=== PATIENT | female | born 1990 | race Caucasian/White ===

== ENCOUNTER 2016-12-16 18:47 | Inpatient (IN) | payer OTHER, BC ==
[2016-12-16] MEDS ORDERED: NS 1,000 ML IV ONE ×2 (19:01→20:44)
[2016-12-16] MEDS ORDERED: ONDANSETRON 4 MG/2 ML VIAL IVP ONE (19:09)
[2016-12-16] MEDS ORDERED: HYDROmorphONE/DILAUDID 1 MG/ML SYR IVP ONE ×2 (19:09→20:42)
[2016-12-16 19:12] LABS: % IMMATURE GRANULYOCYTES 0.3 % (0.0-1.1); ABSOLUTE IMMATURE GRANULOCYTES 0.04 10^3/uL (0.00-0.10); ADD DIFF? NO; ADD MORPH? NO; ADD SCAN? NO; ATYPICAL LYMPHOCYTE FLAG 0 (0-99); FRAGMENT RBC FLAG 0 (0-99); HEMATOCRIT 38.1 % (38.0-47.0); HEMOGLOBIN 12.4 g/dL (12.6-16.3); LEFT SHIFT FLG 0 (0-99); LIPEMIA HEMOLYSIS FLAG 80 (0-99); MEAN CELL HEMOGLOBIN 24.4 pg (27.9-34.1); MEAN CELL HEMOGLOBIN CONCENTR. 32.5 g/dL (32.4-36.7); MEAN CELL VOLUME 74.9 fL (81.5-99.8); MEAN PLATELET VOLUME 10.9 fL (8.7-11.7); PLATELET CLUMPS FLAG 0 (0-99); PLATELET COUNT 331 10^3/uL (150-400); RED BLOOD CELL COUNT 5.09 10^6/uL (4.18-5.33); RED CELL DISTRIBUTION WIDTH 14.6 % (11.5-15.2)
--- NOTE | 2016-12-16 19:13 | EDPHY ---
H & P Stated Complaint: Has had previous pancreatitis. Feels she has is having an episode today. - Personal History LMP (Females 10-55): 1-7 Days Ago Current Tetanus Diphtheria and Acellular Pertussis (TDAP): Yes - Medical/Surgical History Hx Asthma: No Hx Chronic Respiratory Disease: No Hx Diabetes: No Hx Cardiac Disease: No Hx Renal Disease: No Hx Cirrhosis: No Hx Alcoholism: No Hx HIV/AIDS: No Hx Splenectomy or Spleen Trauma: No Other PMH: Pancreatitis. Back surgery. - Social History Smoking Status: Never smoked Time Seen by Provider: 12/16/16 18:56 HPI/ROS: CHIEF COMPLAINT: " I think I have pancreatitis again" HISTORY OF PRESENT ILLNESS: 26-year-old female with medical history significant for multiple gastroenterological issues including non alcohol induced pancreatitis, remote history of cholecystectomy, ERCP, all performed in [facility], complaining of acute onset epigastric pain since this morning with associated nausea. Passing flatus as normal. Bowel movements normal. No vomiting. Feels similar to prior episodes of acute pancreatitis. No radiation pain. No fever or chills. No trauma. No urinary abnormality. Last oral intake was at noon today consisting of quinoa which exacerbated her symptoms REVIEW OF SYSTEMS: A ten point review of systems was performed and is negative with the exception of the items mentioned in the HPI PAST MEDICAL & SURGICAL HISTORY: Cholecystectomy. ERCP. Pancreatitis. SOCIAL HISTORY: intermittent, social alcohol use. 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 PHYSICAL EXAM (Prior to examination, patient consented to physical exam, hands were washed and my usual and customary physical exam procedures followed) 1) GENERAL: Well-developed, well-nourished, alert and oriented. Appears uncomfortable, guarding epigastrium 2) HEAD: Normocephalic, atraumatic 3) HEENT: Pupils equal, round, reactive to light bilaterally. Sclera anicteric. Nasopharynx, oropharynx, clear, no lesions. dry mucous membrane 4) NECK: Full range of motion, no meningeal signs. 5) LUNGS: Clear auscultation bilaterally, no wheezes, no rhonchi, no retractions. 6) HEART: Regular rate and rhythm, no murmur, no heave, no gallop. 7) ABDOMEN: guarding epigastrium, tender to palpation epigastrium , negative McBurney's, negative Felix's, negative Rovsing's, negative peritoneal sign, 8) MUSCULOSKELETAL: Moving all extremities, no focal areas of tenderness, no obvious trauma. No peripheral edema or discoloration. 9) BACK: [No CVA tenderness, no midline vertebral tenderness, no fluctuance, no step-off, no obvious trauma, no visual or palpable abnormality. 10) SKIN: [No rash, no petechiae. DIFFERENTIAL DIAGNOSIS: In no particular order, including but not limited to biliary colic, cholecystitis, peptic ulcer disease, Bowel obstruction, pancreatitis, and gastroenteritis. This is a partial list of diagnoses considered. These considerations are based on history, physical exam, past history and reassessment. (Dusty Enrique) Constitutional: Initial Vital Signs Temperature (C) 36.3 C 12/16/16 18:50 Heart Rate 58 L 12/16/16 18:50 Respiratory Rate 20 12/16/16 18:50 Blood Pressure 105/57 L 12/16/16 18:50 O2 Sat (%) 100 12/16/16 18:50 O2 Delivery Mode Room Air Allergies/Adverse Reactions: No Known Allergies Allergy (Unverified 12/16/16 18:54) Home Medications: Medication Instructions Recorded Ethinyl Estradiol/Drospirenone 1 each PO HS 12/16/16 [Katya 28 Tablet] Lipase/Protease/Amylase [ZENPEP DR 1 cap PO TID PRN 12/16/16 5,000 UNITS CAPSULE] Lipase/Protease/Amylase [ZENPEP DR 2 cap PO DAILY 12/16/16 5,000 UNITS CAPSULE] Multivitamins [Multivitamin (*)] 1 each PO DAILY 12/16/16 Pantoprazole Sodium [Protonix 40mg 40 mg PO DAILY 12/16/16 (*)] Medical Decision Making ED Course/Re-evaluation: Patient was re-evaluated with serial examinations. Discussed case Dr. Neville Uriostegui in the ER. Patient has evidence of acute pancreatitis, lipase of 1957. CT imaging performed showing no pancreatic head mass or abscess. Plan will be admission for further evaluation of her acute pancreatitis. Phone consultation with hospitalist Dr. Arun Akbar at 8:20 p.m. who will admit patient. (Klaus,D Nabila) I did not see this patient while she was in the emergency department. However her care was discussed with the PA while the patient was in the department. I agree with treatment plan and management (Neville Uriostegui) - Data Points Laboratory Results: Laboratory Results 12/16/16 19:05 12/16/16 19:05 12/16/16 12/16/16 12/16/16 19:05 19:05 19:05 WBC 13.89 10^3/uL H 10^3/uL (3.80-9.50) RBC 5.09 10^6/uL 10^6/uL (4.18-5.33) Hgb 12.4 g/dL L g/dL (12.6-16.3) Hct 38.1 % % (38.0-47.0) MCV 74.9 fL L fL (81.5-99.8) MCH 24.4 pg L pg (27.9-34.1) MCHC 32.5 g/dL g/dL (32.4-36.7) RDW 14.6 % % (11.5-15.2) Plt Count 331 10^3/uL 10^3/uL (150-400) MPV 10.9 fL fL (8.7-11.7) Neut % (Auto) 73.8 % % (39.3-74.2) Lymph % (Auto) 16.6 % % (15.0-45.0) [place] % (Auto) 7.0 % % (4.5-13.0) Eos % (Auto) 1.9 % % (0.6-7.6) Baso % (Auto) 0.4 % % (0.3-1.7) Nucleat RBC Rel Count 0.0 % % (0.0-0.2) Absolute Neuts (auto) 10.26 10^3/uL H 10^3/uL (1.70-6.50) Absolute Lymphs (auto) 2.31 10^3/uL 10^3/uL (1.00-3.00) Absolute Monos (auto) 0.97 10^3/uL H 10^3/uL (0.30-0.80) Absolute Eos (auto) 0.26 10^3/uL 10^3/uL (0.03-0.40) Absolute Basos (auto) 0.05 10^3/uL 10^3/uL (0.02-0.10) Absolute Nucleated RBC 0.00 10^3/uL 10^3/uL (0-0.01) Immature Gran % 0.3 % % (0.0-1.1) Immature Gran # 0.04 10^3/uL 10^3/uL (0.00-0.10) Sodium 138 mEq/L mEq/L (134-144) Potassium 3.8 mEq/L mEq/L (3.5-5.2) Chloride 105 mEq/L mEq/L (97-110) Carbon Dioxide 22 mEq/l mEq/l (22-31) Anion Gap 11 mEq/L mEq/L (8-16) BUN 16 mg/dL mg/dL (7-23) Creatinine 1.0 mg/dL mg/dL (0.6-1.0) Estimated GFR > 60 Glucose 91 mg/dL mg/dL (70-100) Calcium 9.7 mg/dL mg/dL (8.5-10.4) Total Bilirubin 0.5 mg/dL mg/dL (0.1-1.4) Conjugated Bilirubin 0.5 mg/dL mg/dL (0.0-0.5) Unconjugated Bilirubin 0.0 mg/dL mg/dL (0.0-1.1) AST 24 IU/L IU/L (14-46) ALT 31 IU/L IU/L (9-52) Alkaline Phosphatase 58 IU/L IU/L (38-126) Total Protein 7.0 g/dL g/dL (6.3-8.2) Albumin 4.3 g/dL g/dL (3.5-5.0) Lipase 1957.0 IU/L H IU/L (23-300) Beta HCG, Qual NEGATIVE Medications Given: Discontinued Medications Hydromorphone HCl (Dilaudid) 1 mg IVP EDNOW ONE Stop: 12/16/16 19:10 Last Admin: 12/16/16 19:22 Dose: 1 mg Sodium Chloride (Ns) 1,000 mls @ 0 mls/hr IV ONCE ONE PRN Reason: Wide Open Stop: 12/16/16 19:02 Last Admin: 12/16/16 19:22 Dose: 1,000 mls Ondansetron HCl (Zofran) 4 mg IVP EDNOW ONE Stop: 12/16/16 19:10 Last Admin: 12/16/16 19:22 Dose: 4 mg Departure - Departure Disposition: [facility] In[facility] Acute Clinical Impression: Acute pancreatitis Qualifiers: Pancreatitis type: unspecified pancreatitis type Acute pancreatitis complication: no infection or necrosis Qualified Code(s): K85.90 - Acute pancreatitis without necrosis or infection, unspecified Condition: Fair
[2016-12-16] MEDS ORDERED: ONDANSETRON 4 MG/2 ML VIAL ONE (19:17)
[2016-12-16 19:25] LABS: ALANINE AMINOTRANSFERASE 31 IU/L (9-52); ALBUMIN 4.3 g/dL (3.5-5.0); ALKALINE PHOSPHATASE 58 IU/L (38-126); ANION GAP 11 mEq/L (8-16); ASPARTATE AMINOTRANSFERASE 24 IU/L (14-46); BILIRUBIN,TOTAL 0.5 mg/dL (0.1-1.4); BILIRUBIN-CONJUGATED 0.5 mg/dL (0.0-0.5); CALCIUM 9.7 mg/dL (8.5-10.4); CARBON DIOXIDE 22 mEq/l (22-31); CHLORIDE 105 mEq/L (97-110); GLOMERULAR FILTRATION RATE > 60; GLUCOSE 91 mg/dL (70-100); POTASSIUM 3.8 mEq/L (3.5-5.2); SODIUM 138 mEq/L (134-144)
[2016-12-16] MEDS ORDERED: IOPAMIDOL (ISOVUE-300) 100 ML BTL IV ONE (19:43)
[2016-12-16] MEDS ORDERED: NALOXONE HCL 0.4 MG/ML INJ IVP PRN (21:39)
[2016-12-16] MEDS ORDERED: ACETAMINOPHEN 325 MG TAB PO PRN (21:43)
[2016-12-16] MEDS ORDERED: ONDANSETRON DISINTEGRATING 4 MG TAB PO PRN (21:43)
[2016-12-16] MEDS ORDERED: METOCLOPRAMIDE 10 MG/2 ML VIAL IVP PRN (21:43)
[2016-12-16] MEDS: ONDANSETRON 4 MG/2 ML VIAL IVP PRN (21:58)
[2016-12-16] MEDS: HYDROmorphONE/DILAUDID 6 MG/30 ML PCA IV PRN (22:08)
[2016-12-16] MEDS: NS 1,000 ML IV SCH (22:14)
[2016-12-17 02:37] LABS: COLOR PALE YELLOW; LEUKOCYTE ESTERASE,URINE NEGATIVE (NEGATIVE); NITRITE,URINE NEGATIVE (NEGATIVE)
[2016-12-17] MEDS: NS 1,000 ML IV SCH (04:40)
[2016-12-17 05:19] LABS: ALANINE AMINOTRANSFERASE 26 IU/L (9-52); ALKALINE PHOSPHATASE 41 IU/L (38-126); ANION GAP 6 mEq/L (8-16); ASPARTATE AMINOTRANSFERASE 17 IU/L (14-46); BILIRUBIN,TOTAL 0.4 mg/dL (0.1-1.4); CALCIUM 8.1 mg/dL (8.5-10.4); CARBON DIOXIDE 20 mEq/l (22-31); CHLORIDE 111 mEq/L (97-110); CREATININE 0.9 mg/dL (0.6-1.0); GLOMERULAR FILTRATION RATE > 60; GLUCOSE 144 mg/dL (70-100); POTASSIUM 4.3 mEq/L (3.5-5.2); SODIUM 137 mEq/L (134-144); TOTAL PROTEIN 5.4 g/dL (6.3-8.2)
[2016-12-17] MEDS ORDERED: NS 1,000 ML IV ONE (08:15)
[2016-12-17] MEDS: PANTOPRAZOLE SODIUM 40 MG in NS 100 ML IV SCH (09:53)
[2016-12-17] MEDS: ENOXAPARIN 40 MG/0.4 ML SYR SC SCH (09:53)
[2016-12-17] MEDS: ONDANSETRON 4 MG/2 ML VIAL IVP PRN (11:28)
[2016-12-17] MEDS: D5W 1/2 NS 1,000 ML IV SCH (11:30)
--- NOTE | 2016-12-17 11:56 | HOSPPROG ---
Hospitalist Progress Note Assessment/Plan: Acute pancreatitis - has h/o pancreatic stones causing prior episodes of pancreatitis. S/P cholecystectomy 01/2012. Last ERCP was 11/2013, removed a stone at that time. CT imaging here shows enlarged pancreatic duct. -cont NPO, IVF's, supportive care -if not improving, will pursue MRCP and possibly GI consult Chronic back pain - h/o microdiscectomy, followed by PT DVT PPLX - Lovenox Full code Subjective: Pt doing ok. has some nausea, no vomiting. Pain controlled on HIDES INSPECTOR. No fevers. Objective: Vital Signs Temp Pulse Resp BP Pulse Ox 36.7 C 60 16 105/64 97 12/17/16 09:57 12/17/16 09:57 12/17/16 09:57 12/17/16 09:57 12/17/16 09:57 Laboratory Results 12/17/16 04:37 12/16/16 12/17/16 12/18/16 05:59 05:59 05:59 Intake Total 2650 Output Total 700 Balance 1950 - Physical Exam Constitutional: no apparent distress Eyes: PERRL Ears, Nose, Mouth, Throat: moist mucous membranes Cardiovascular: regular rate and rhythym, no murmur, rub, or gallop Respiratory: no respiratory distress, clear to auscultation Gastrointestinal: normoactive bowel sounds, other (soft, nd, +epigastric ttp, no r/r/g) Skin: warm Musculoskeletal: full muscle strength Neurologic: AAOx3 Psychiatric: interacting appropriately ICD10 Worksheet Patient Problems: Problems Problem Status Onset Acute pancreatitis Acute
[2016-12-17] MEDS: PROMETHAZINE HCL 25 MG TAB PO PRN ×2 (12:37→18:42)
[2016-12-17] MEDS ORDERED: PROTOCOL CALCIUM 1 DOSE IV PRN (17:32)
[2016-12-17] MEDS ORDERED: DROSPIRENONE PO SCH (21:00)
[2016-12-17] MEDS ORDERED: ETHINYL ESTRADIOL PO SCH (21:00)
[2016-12-17] MEDS: DROSPIRENONE PO SCH (21:07)
[2016-12-17] MEDS: ETHINYL ESTRADIOL PO SCH (21:07)
[2016-12-18] MEDS: D5W 1/2 NS 1,000 ML IV SCH ×2 (00:59→08:28)
[2016-12-18 04:56] LABS: IONIZED CALCIUM 1.13 MMOL/L (1.12-1.30)
[2016-12-18 05:06] LABS: % IMMATURE GRANULYOCYTES 0.4 % (0.0-1.1); ABSOLUTE IMMATURE GRANULOCYTES 0.03 10^3/uL (0.00-0.10); ADD DIFF? NO; ADD MORPH? NO; ADD SCAN? NO; ATYPICAL LYMPHOCYTE FLAG 10 (0-99); FRAGMENT RBC FLAG 0 (0-99); HEMATOCRIT 30.3 % (38.0-47.0); HEMOGLOBIN 9.7 g/dL (12.6-16.3); LEFT SHIFT FLG 0 (0-99); LIPEMIA HEMOLYSIS FLAG 80 (0-99); MEAN CELL HEMOGLOBIN 24.8 pg (27.9-34.1); MEAN CELL VOLUME 77.5 fL (81.5-99.8); MEAN PLATELET VOLUME 10.9 fL (8.7-11.7); PLATELET CLUMPS FLAG 0 (0-99); PLATELET COUNT 211 10^3/uL (150-400); RED BLOOD CELL COUNT 3.91 10^6/uL (4.18-5.33); RED CELL DISTRIBUTION WIDTH 14.8 % (11.5-15.2)
[2016-12-18 05:20] LABS: ANION GAP 6 mEq/L (8-16); CALCIUM 8.3 mg/dL (8.5-10.4); CARBON DIOXIDE 20 mEq/l (22-31); CHLORIDE 110 mEq/L (97-110); CREATININE 0.9 mg/dL (0.6-1.0); GLOMERULAR FILTRATION RATE > 60; GLUCOSE 120 mg/dL (70-100); POTASSIUM 3.7 mEq/L (3.5-5.2); SODIUM 136 mEq/L (134-144)
[2016-12-18] MEDS: PANTOPRAZOLE SODIUM 40 MG in NS 100 ML IV SCH (08:26)
[2016-12-18] MEDS: ENOXAPARIN 40 MG/0.4 ML SYR SC SCH (09:38)
--- NOTE | 2016-12-18 09:59 | HOSPPROG ---
Hospitalist Progress Note Assessment/Plan: Acute pancreatitis - has h/o pancreatic stones causing prior episodes of pancreatitis. Reviewed prior records. S/P cholecystectomy 01/2012. Last ERCP was 11/2013, removed a stone at that time. CT imaging here shows minimally enlarged pancreatic duct. Since she is improving, will defer MRCP today. -try ice chips, cont IVF's, supportive care -Low threshold for MRCP and GI consult if condition worsens Chronic back pain - h/o microdiscectomy, followed by PT DVT PPLX - Lovenox Full code Dispo - cont inpt Subjective: PT feels better. Pain 3/10 at rest. No more nausea, no vomiting. No fevers/chills. Wants to try some ice chips. Objective: Vital Signs Temp Pulse Resp BP Pulse Ox 36.7 C 52 L 14 101/59 L 96 12/18/16 08:42 12/18/16 08:42 12/18/16 08:42 12/18/16 08:42 12/18/16 08:42 Laboratory Results 12/18/16 04:49 12/18/16 04:49 12/17/16 12/18/16 12/19/16 05:59 05:59 05:59 Intake Total 2650 Output Total 700 1350 800 Balance 1950 -1350 -800 - Physical Exam Constitutional: no apparent distress Eyes: PERRL Ears, Nose, Mouth, Throat: moist mucous membranes Cardiovascular: regular rate and rhythym Respiratory: no respiratory distress Gastrointestinal: normoactive bowel sounds, other (soft, nd, mild epigastric TTP , no r/r/g) Skin: warm Musculoskeletal: full muscle strength Neurologic: AAOx3 Psychiatric: interacting appropriately ICD10 Worksheet Patient Problems: Problems Problem Status Onset Acute pancreatitis Acute
[2016-12-18] MEDS: D5W 1/2 NS W/ 20 KCl/L 1,000 ML IV SCH ×2 (10:30→17:44)
[2016-12-18] MEDS: HYDROmorphONE/DILAUDID 6 MG/30 ML PCA IV PRN (11:20)
[2016-12-18] MEDS: DROSPIRENONE PO SCH (20:29)
[2016-12-18] MEDS: ETHINYL ESTRADIOL PO SCH (20:29)
[2016-12-19] MEDS: D5W 1/2 NS W/ 20 KCl/L 1,000 ML IV SCH (02:47)
[2016-12-19 04:53] LABS: IONIZED CALCIUM 1.17 MMOL/L (1.12-1.30)
[2016-12-19 05:00] LABS: HEMATOCRIT 30.6 % (38.0-47.0); HEMOGLOBIN 9.9 g/dL (12.6-16.3); MEAN CELL HEMOGLOBIN 24.8 pg (27.9-34.1); MEAN CELL HEMOGLOBIN CONCENTR. 32.4 g/dL (32.4-36.7); MEAN CELL VOLUME 76.5 fL (81.5-99.8); RED CELL DISTRIBUTION WIDTH 14.7 % (11.5-15.2)
[2016-12-19 05:21] LABS: ANION GAP 7 mEq/L (8-16); CALCIUM 8.5 mg/dL (8.5-10.4); CARBON DIOXIDE 22 mEq/l (22-31); CHLORIDE 109 mEq/L (97-110); GLOMERULAR FILTRATION RATE > 60; GLUCOSE 104 mg/dL (70-100); POTASSIUM 3.9 mEq/L (3.5-5.2); SODIUM 138 mEq/L (134-144)
[2016-12-19] MEDS: PANTOPRAZOLE SODIUM 40 MG in NS 100 ML IV SCH (08:45)
[2016-12-19] MEDS: ENOXAPARIN 40 MG/0.4 ML SYR SC SCH (09:16)
[2016-12-19] MEDS ORDERED: oxyCODONE IR 5 MG TAB PO PRN (15:31)
[2016-12-19 16:50] VITALS: BP 115/62; PULSE 54; RESP 16; TEMP 98.3; O2SAT 98
--- NOTE | 2016-12-19 19:42 | GDS ---
[f rep st] DISCHARGE SUMMARY DISCHARGE DIAGNOSES: 1. Acute on chronic pancreatitis. 2. Chronic back pain. CONSULTANTS: None. IMAGING STUDIES/PROCEDURES: Abdomen CT December 16, 2016, showed inflammation around the pancreatic he ad on top of underlying chronic pancreatitis with calcifications of the pancreatic head and body as well as mild pancreatic ductal dilatation, previous cholecystectomy. HISTORY: The patient is a 26-year-old female with a history of chronic pancreatitis, who has previo usly required ERCP for removal of pancreatic stones and has also undergone cholecystectomy, presents to the emergency department with abdominal pain and nausea. CT imaging was consistent with acute p ancreatitis. She was admitted to the hospital for further management. HOSPITAL COURSE: The patient was admitted to the med-surg unit. She was initially made n.p.o. for bowel rest and given IV fluids. She had an acute leukocytosis on admission, which resolved at the t jada of discharge. Her lipase was nearly 2000 on arrival. Repeat lipase was 84. She had normal LFT s. Her pancreatic duct was just minimally dilated. Fortunately, with conservative care, the patient quickly improved. Therefore, further imaging was d eferred. She was able to tolerate a full diet on the day of discharge, and it is recommended she es tablish care with a body technician locally here in [place], as her prior GI care had been in [place]. DISPOSITION: Patient is discharged home in stable condition. FOLLOWUP: Dr. Hesham Flor, GI of [facility], for outpatient consultation. DISCHARGE MEDICATIONS: Please see [employer] for complete outpatient medication list. New medications on discharge include: Oxycodone 5-10 mg p.o. q.4 hours p.r.n. #20 no refills, Zofra n 4 mg p.o. q.4 hours p.r.n. #20 no refills. She will continue all her other outpatient medications as prescribed, including p.r.n. Creon, Katya or al contraception, Protonix, and multivitamin. /[id number]/MODL
== END 2016-12-19 17:37 | disposition home or self-care (01) | DRG 440 ==
LOC: F3E 21:13
PROVIDERS: ADMIT Internal Medicine; ATTEND Internal Medicine
DX: K85.90 Acute pancreatitis without necrosis or infection, unspecified (principal); K86.1 Other chronic pancreatitis; M54.9 Dorsalgia, unspecified
CPT/HCPCS: 96374; J1170; J1650; J2405; Q9967

== ENCOUNTER 2017-02-17 02:30 | Inpatient (IN) | payer BC, OTHER ==
[2017-02-17] MEDS ORDERED: ONDANSETRON 4 MG/2 ML VIAL ONE ×2 (02:55→05:58)
[2017-02-17] MEDS ORDERED: FAMOTIDINE 20 MG/NACL 50 ML IV ONE (02:57)
[2017-02-17] MEDS ORDERED: NS 1,000 ML IV ONE (02:57)
[2017-02-17 03:09] LABS: % IMMATURE GRANULYOCYTES 0.2 % (0.0-1.1); ABSOLUTE IMMATURE GRANULOCYTES 0.02 10^3/uL (0.00-0.10); ADD DIFF? NO; ADD MORPH? NO; ADD SCAN? NO; ATYPICAL LYMPHOCYTE FLAG 0 (0-99); FRAGMENT RBC FLAG 0 (0-99); HEMATOCRIT 37.8 % (38.0-47.0); HEMOGLOBIN 12.1 g/dL (12.6-16.3); LEFT SHIFT FLG 0 (0-99); LIPEMIA HEMOLYSIS FLAG 80 (0-99); MEAN CELL HEMOGLOBIN 24.7 pg (27.9-34.1); MEAN CELL VOLUME 77.1 fL (81.5-99.8); MEAN PLATELET VOLUME 11.1 fL (8.7-11.7); PLATELET CLUMPS FLAG 10 (0-99); PLATELET COUNT 310 10^3/uL (150-400)
--- NOTE | 2017-02-17 03:12 | EDPHY ---
H & P Stated Complaint: chronic pancreatitis- exacerbation, post recent ERCP Time Seen by Provider: 02/17/17 02:55 HPI/ROS: HPI The patient presents with upper abdominal pain which has been present since she had an ERCP was performed on February 14 at [facility]. She had a pancreatic stent placed for chronic pancreatitis. She initially had pain but was able to tolerate clear liquids and some bland foods. However, for the last 2 days her pain is getting progressively worse as and she has not been able to tolerate anything by mouth because it increased pain. She has not had any vomiting. She has been taking oxycodone for the pain, however her last dose did not help her. She has not had any fevers or chills.. REVIEW OF SYSTEMS Constitutional: No fever, no chills. Eyes: No discharge. ENT: No sore throat. Cardiovascular: No chest pain, no palpitations. Respiratory: No cough, no shortness of breath. Gastrointestinal: See HPI Genitourinary: No hematuria. Musculoskeletal: No back pain. Skin: No rashes. Neurological: No headache. PMHx: Chronic pancreatitis, status post cholecystectomy Soc Hx: Moved to [place] from [place] PHYSICAL General Appearance: Alert, no distress Eyes: Pupils equal and round no pallor or injection ENT, Mouth: Mucous membranes moist Respiratory: There are no retractions, lungs are clear to auscultation Cardiovascular: Regular rate and rhythm Gastrointestinal: Abdomen is soft with tenderness in the epigastrium and left upper quadrant which is moderate without rebound or guarding Neurological: A&O, moves all extremities Skin: Warm and dry, no rashes Musculoskeletal: Neck is supple non tender Extremities: symmetrical, full range of motion Psychiatric: Patient is oriented X 3, there is no agitation Source: Patient Exam Limitations: No limitations - Personal History LMP (Females 10-55): 15-21 Days Ago - Medical/Surgical History Hx Asthma: No Hx Chronic Respiratory Disease: No Hx Diabetes: No Hx Cardiac Disease: No Hx Renal Disease: No Hx Cirrhosis: No Hx Alcoholism: No Hx HIV/AIDS: No Hx Splenectomy or Spleen Trauma: No Other PMH: PMHx: Pancreatitis. PSHx: Back surgery. - Social History Smoking Status: Never smoked Constitutional: Initial Vital Signs Temperature (C) 36.5 C 02/17/17 02:32 Heart Rate 52 L 02/17/17 02:32 Respiratory Rate 14 02/17/17 02:32 Blood Pressure 112/75 02/17/17 02:32 O2 Sat (%) 100 02/17/17 02:32 O2 Delivery Mode Room Air Allergies/Adverse Reactions: No Known Allergies Allergy (Unverified 12/16/16 18:54) Home Medications: Medication Instructions Recorded Ethinyl Estradiol/Drospirenone 1 each PO HS 12/16/16 [Katya 28 Tablet] Lipase/Protease/Amylase [ZENPEP DR 1 cap PO TID PRN 12/16/16 5,000 UNITS CAPSULE] Lipase/Protease/Amylase [ZENPEP DR 2 cap PO DAILY 12/16/16 5,000 UNITS CAPSULE] Multivitamins [Multivitamin (*)] 1 each PO DAILY 12/16/16 Pantoprazole Sodium [Protonix 40mg 40 mg PO DAILY 12/16/16 (*)] Ondansetron Odt [Zofran Odt 4 mg 4 mg PO Q4HRS PRN #20 tab 12/19/16 (*)] oxyCODONE IR [Oxycodone Ir (*)] 5 - 10 mg PO Q4HRS PRN #20 tab 12/19/16 Medical Decision Making - Diagnostics Imaging Results: CT scan abdomen pelvis with IV contrast demonstrates inflammation of the pancreatic head, pancreatic stent in place, discussed with the radiologist email production specialist. Differential Diagnosis: This is a 26-year-old female with chronic pancreatitis, diagnosed at age 20 who is status post ERCP 3 days ago with persistent abdominal pain, unable to tolerate much p.o. because of his increased pain. Taking pain medication at home , however still in severe pain. Likely, ERCP has caused exacerbation of pancreatitis. Other possibilities include gastritis or choledocholithiasis. The emergency room, the patient was given IV fluids. The patient was given famotidine and Dilaudid for her pain with some improvement. She still felt uncomfortable. Labs were checked and were unremarkable including a normal lipase which was unusual given the clinical picture suggested pancreatitis. I consulted with the hospitalist Dr. Ramon Cedeño saw the patient in the emergency room. He recommends a CT scan and this is been ordered. The patient will be admitted to the hospitalist service with ongoing pain control. - Data Points Laboratory Results: Laboratory Results 02/17/17 02:55 02/17/17 02:55 02/17/17 02/17/17 02:55 02:55 WBC 8.64 10^3/uL 10^3/uL (3.80-9.50) RBC 4.90 10^6/uL 10^6/uL (4.18-5.33) Hgb 12.1 g/dL L g/dL (12.6-16.3) Hct 37.8 % L % (38.0-47.0) MCV 77.1 fL L fL (81.5-99.8) MCH 24.7 pg L pg (27.9-34.1) MCHC 32.0 g/dL L g/dL (32.4-36.7) RDW 15.0 % % (11.5-15.2) Plt Count 310 10^3/uL 10^3/uL (150-400) MPV 11.1 fL fL (8.7-11.7) Neut % (Auto) 56.1 % % (39.3-74.2) Lymph % (Auto) 29.1 % % (15.0-45.0) [place] % (Auto) 9.7 % % (4.5-13.0) Eos % (Auto) 4.3 % % (0.6-7.6) Baso % (Auto) 0.6 % % (0.3-1.7) Nucleat RBC Rel Count 0.0 % % (0.0-0.2) Absolute Neuts (auto) 4.85 10^3/uL 10^3/uL (1.70-6.50) Absolute Lymphs (auto) 2.51 10^3/uL 10^3/uL (1.00-3.00) Absolute Monos (auto) 0.84 10^3/uL H 10^3/uL (0.30-0.80) Absolute Eos (auto) 0.37 10^3/uL 10^3/uL (0.03-0.40) Absolute Basos (auto) 0.05 10^3/uL 10^3/uL (0.02-0.10) Absolute Nucleated RBC 0.00 10^3/uL 10^3/uL (0-0.01) Immature Gran % 0.2 % % (0.0-1.1) Immature Gran # 0.02 10^3/uL 10^3/uL (0.00-0.10) Sodium 138 mEq/L mEq/L (134-144) Potassium 4.1 mEq/L mEq/L (3.5-5.2) Chloride 104 mEq/L mEq/L (97-110) Carbon Dioxide 24 mEq/l mEq/l (22-31) Anion Gap 10 mEq/L mEq/L (8-16) BUN 11 mg/dL mg/dL (7-23) Creatinine 1.0 mg/dL mg/dL (0.6-1.0) Estimated GFR > 60 Glucose 101 mg/dL H mg/dL (70-100) Calcium 9.6 mg/dL mg/dL (8.5-10.4) Total Bilirubin 0.5 mg/dL mg/dL (0.1-1.4) Conjugated Bilirubin 0.5 mg/dL mg/dL (0.0-0.5) Unconjugated Bilirubin 0.0 mg/dL mg/dL (0.0-1.1) AST 30 IU/L IU/L (14-46) ALT 32 IU/L IU/L (9-52) Alkaline Phosphatase 57 IU/L IU/L (38-126) Total Protein 7.0 g/dL g/dL (6.3-8.2) Albumin 4.3 g/dL g/dL (3.5-5.0) Lipase 60.0 IU/L IU/L (23-300) Medications Given: Discontinued Medications Hydromorphone HCl (Dilaudid) 0.5 mg IVP Q4 PRN PRN Reason: Pain, Severe Unable to Take PO Stop: 02/27/17 03:04 Last Admin: 02/17/17 05:57 Dose: 0.5 mg Sodium Chloride (Ns) 1,000 mls @ 0 mls/hr IV ONCE ONE PRN Reason: Wide Open Stop: 02/17/17 02:58 Last Admin: 02/17/17 02:55 Dose: 1,000 mls Famotidine/Sodium Chloride (Pepcid 20 Mg (Premix)) 50 mls @ 200 mls/hr IV EDNOW ONE Stop: 02/17/17 03:11 Last Admin: 02/17/17 03:14 Dose: 50 mls Departure - Departure Disposition: [facility] Inpatient Acute Clinical Impression: Acute pancreatitis Qualifiers: Pancreatitis type: other Acute pancreatitis complication: no infection or necrosis Qualified Code(s): K85.80 - Other acute pancreatitis without necrosis or infection Condition: Fair
[2017-02-17] MEDS: HYDROmorphONE/DILAUDID 1 MG/ML SYR IVP PRN ×2 (03:14→05:57)
[2017-02-17 03:19] LABS: ALANINE AMINOTRANSFERASE 32 IU/L (9-52); ALBUMIN 4.3 g/dL (3.5-5.0); ALKALINE PHOSPHATASE 57 IU/L (38-126); ANION GAP 10 mEq/L (8-16); ASPARTATE AMINOTRANSFERASE 30 IU/L (14-46); BILIRUBIN,TOTAL 0.5 mg/dL (0.1-1.4); BILIRUBIN-CONJUGATED 0.5 mg/dL (0.0-0.5); CALCIUM 9.6 mg/dL (8.5-10.4); CARBON DIOXIDE 24 mEq/l (22-31); CHLORIDE 104 mEq/L (97-110); GLOMERULAR FILTRATION RATE > 60; GLUCOSE 101 mg/dL (70-100); POTASSIUM 4.1 mEq/L (3.5-5.2); SODIUM 138 mEq/L (134-144)
[2017-02-17] MEDS ORDERED: HYDROmorphONE/DILAUDID 1 MG/ML SYR IVP PRN (04:45)
[2017-02-17] MEDS ORDERED: ACETAMINOPHEN 325 MG TAB PO PRN (04:45)
[2017-02-17] MEDS ORDERED: ONDANSETRON DISINTEGRATING 4 MG TAB PO PRN (04:45)
[2017-02-17] MEDS ORDERED: oxyCODONE IR 5 MG TAB PO PRN (04:45)
[2017-02-17] MEDS ORDERED: IOPAMIDOL (ISOVUE-300) 100 ML BTL ONE (04:47)
[2017-02-17] MEDS: ONDANSETRON 4 MG/2 ML VIAL IVP PRN ×3 (06:16→21:49)
[2017-02-17] MEDS: NS 1,000 ML IV SCH ×2 (06:16→16:18)
--- NOTE | 2017-02-17 06:56 | GHP ---
[f rep st] HISTORY AND PHYSICAL DATE OF ADMISSION: 02/17/2017 CHIEF COMPLAINT: Abdominal pain. HISTORY OF PRESENT ILLNESS: A 26-year-old female with a history of chronic pancreatitis presents wi th abdominal pain. She was initially diagnosed with pancreatitis when she was 20. She does not dri nk. She has had a cholecystectomy, she says that she has had a full workup which has led to a diagn osis of idiopathic pancreatitis. She had an ERCP 3 days ago at the [facility], after being admitted here about 2 months ago for pancreatitis. ERCP involved a pancreatic stent placement. Since then, she has had pain that is somewhat consistent with her normal episodes of acute pancreatitis. Altho ugh her normal course is that she gets better rather quickly. She has not gotten better. She has b een taking clear liquids and pain medicines but does not improve, thus she presents the emergency de partment. She notes that during the ERCP, they felt as though it was a success, they removed some c alcifications. She has had some nausea but no vomiting with p.o. intake. Although her pain is wors ened with p.o. intake. PAST MEDICAL/SURGICAL HISTORY: 1. Chronic pancreatitis as above. 2. GERD. MEDICATIONS: Protonix and pancrelipase. ALLERGIES: None. FAMILY HISTORY: No pancreatitis. SOCIAL HISTORY: She does not drink alcohol. She is accompanied by her boyfriend. REVIEW OF SYSTEMS: 10-point review of systems is conducted and is negative except per HPI. PHYSICAL EXAM: VITAL SIGNS: Blood pressure 112/75, heart rate 52, respiration rate 14, saturating 100% on room air. Temperature is 36.5. GENERAL: The patient is a very pleasant female who appears somewhat uncomfortable otherwise in no acute distress. HEENT: Shows to be normocephalic, atraumati c. CARDIOVASCULAR: Shows regular rate and rhythm. No murmurs, rubs, or gallops. PULMONARY: Lung s clear to auscultation bilaterally. ABDOMEN: Soft. She is mildly tender to palpation in the epig astrium. I do not appreciate any masses. There are no peritoneal signs. SKIN: No rash. : No Brian. NEUROLOGIC: Shows her to be alert and oriented x3. She is moving all extremities. PSYCHIA TRIC: Shows normal mood and affect. LABS: White count is 8.6. Basic metabolic panel is normal. Lipase is 60. DATA: 1. I reviewed her previous CT scan. This shows pancreatitis. 2. I reviewed her chart. 3. I discussed this with Dr. Flor. He will admit to med/surg. IMPRESSION/PLAN: A 26-year-old female with suspected acute on chronic pancreatitis. Abdominal pain. Suspect due to acute on chronic pancreatitis. Atypical in that her lipase is not e levated and it has been in the past. Also she just had an ERCP with a stent placement. Because of this, I will proceed with a CT scan of her abdomen. Otherwise we will treat her empirically for thornton creatitis with bowel rest, IV narcotics, IV fluids. Per her, she has idiopathic pancreatitis. This is a high-risk diagnosis. /[id number]/MODL
[2017-02-17 09:10] LABS: ANION GAP 9 mEq/L (8-16); CARBON DIOXIDE 23 mEq/l (22-31); CHLORIDE 106 mEq/L (97-110); GLOMERULAR FILTRATION RATE > 60; GLUCOSE 89 mg/dL (70-100); POTASSIUM 4.3 mEq/L (3.5-5.2); SODIUM 138 mEq/L (134-144)
--- NOTE | 2017-02-17 09:46 | HOSPPROG ---
Hospitalist Progress Note Assessment/Plan: 26y female with abd pain. #Chronic ideo pancreatitis cont supportive care, NPO, IVF, CARRIAGE [employer]IDER possible acute exacerbation CT report reviewed #Pain supportive care [employer] #Dispo unclear reeval in am Spoke with pt momAminah update given Subjective: Still haivng pain. Some nausea. Objective: Vital Signs Temp Pulse Resp BP Pulse Ox 36.5 C 48 L 16 108/74 93 02/17/17 06:02 02/17/17 06:02 02/17/17 06:02 02/17/17 06:02 02/17/17 06:02 Laboratory Results 02/17/17 08:34 02/16/17 02/17/17 02/18/17 05:59 05:59 05:59 Intake Total 1030 Balance 1030 - Physical Exam Constitutional: appears nourished, uncomfortable Eyes: PERRL, anicteric sclera Ears, Nose, Mouth, Throat: moist mucous membranes, hearing normal, ears appear normal Cardiovascular: No JVD, No tachycardia Respiratory: no respiratory distress, clear to auscultation Gastrointestinal: No tenderness, No ascites Skin: warm, normal color Musculoskeletal: generalized weakness Neurologic: AAOx3 Psychiatric: interacting appropriately, not anxious, not encephalopathic ICD10 Worksheet Patient Problems: Problems Problem Status Onset Acute pancreatitis Acute
[2017-02-17] MEDS ORDERED: NALOXONE HCL 0.4 MG/ML INJ IVP PRN (10:55)
[2017-02-17] MEDS: HYDROmorphONE/DILAUDID 6 MG/30 ML PCA IV PRN (11:42)
[2017-02-18] MEDS: NS 1,000 ML IV SCH ×3 (00:52→18:26)
[2017-02-18] MEDS: HYDROmorphONE/DILAUDID 6 MG/30 ML PCA IV PRN (00:52)
--- NOTE | 2017-02-18 11:16 | HOSPPROG ---
Hospitalist Progress Note Assessment/Plan: 26y female with abd pain. #Chronic ideo pancreatitis acute exacerbation related to recent ERCP with stent placement done at [place] cont supportive care, NPO, IVF, STORES ASSISTANT CT report reviewed with GI, no intervention warranted at this time #Pain supportive care STORES ASSISTANT #Dispo unclear better but still having discomfort no appetite change to inpt status cont bowel rest Subjective: Feeling a bit better but not resolved. Not hungry. Still using STORES ASSISTANT. Objective: Vital Signs Temp Pulse Resp BP Pulse Ox 36.8 C 54 L 16 112/67 96 02/18/17 10:00 02/18/17 10:00 02/18/17 10:00 02/18/17 10:00 02/18/17 10:00 Laboratory Results 02/17/17 08:34 02/17/17 02/18/17 02/19/17 05:59 05:59 05:59 Intake Total 1030 1146 Balance 1030 1146 - Physical Exam Constitutional: no apparent distress, appears nourished, uncomfortable Eyes: PERRL, anicteric sclera, EOMI Ears, Nose, Mouth, Throat: moist mucous membranes, hearing normal, ears appear normal Cardiovascular: No JVD, No edema Respiratory: no respiratory distress, reduced air movement Gastrointestinal: tenderness, No ascites, No guarding Skin: warm, normal color, No erythema Musculoskeletal: normal joint ROM, no joint effusions, generalized weakness Neurologic: AAOx3 Psychiatric: interacting appropriately, not anxious, not encephalopathic ICD10 Worksheet Patient Problems: Problems Problem Status Onset Acute pancreatitis Acute
[2017-02-18] MEDS: ONDANSETRON 4 MG/2 ML VIAL IVP PRN ×3 (14:12→22:07)
[2017-02-19] MEDS: NS 1,000 ML IV SCH ×2 (03:32→12:58)
[2017-02-19] MEDS: HYDROmorphONE/DILAUDID 6 MG/30 ML PCA IV PRN (06:59)
--- NOTE | 2017-02-19 14:42 | HOSPPROG ---
Hospitalist Progress Note Assessment/Plan: 26-year-old admitted with acute pancreatitis. She has recently had a stent placed at the [facility] and had the onset of abdominal pain with persistent nausea consistent with her pancreatitis. Today is hospital day 2. Patient is new to me today -Chronic ideo pancreatitis acute exacerbation related to recent ERCP with stent placement done at [place] cont supportive care, NPO, IVF, IDENTIFIER HORSE CT report reviewed with GI, no intervention warranted at this time -Pain supportive care IDENTIFIER HORSE -Dispo unclear better but still having discomfort no appetite change to inpt status cont bowel rest Subjective: reports she is still having persistent nausea. She had 8 hours of nausea and has no appetite. Her pain is somewhere between a 4 and 7/10. Overall it is only very slightly improved from the time of admission. Denies fever cough shortness of breath or chest pain. Objective: Vital Signs Temp Pulse Resp BP Pulse Ox 37.0 C 57 L 18 116/64 95 02/19/17 12:00 02/19/17 12:00 02/19/17 12:00 02/19/17 12:00 02/19/17 12:00 02/18/17 02/19/17 02/20/17 05:59 05:59 05:59 Intake Total 1471 Balance 1471 - Time Spent With Patient Time Spent with Patient: greater than 35 minutes Time Spent with Patient: Greater than 35 minutes spent on this patients care, greater than 50% of time spent counseling, educating, and coordinating care regarding the above mentioned plan. - Pending Discharge Pending Discharge Within 24 Hours: No Pending Discharge Within 48 Hours: No - Physical Exam Constitutional: no apparent distress Eyes: PERRL, anicteric sclera Ears, Nose, Mouth, Throat: moist mucous membranes Cardiovascular: regular rate and rhythym, no murmur, rub, or gallop Respiratory: no respiratory distress, no rales or rhonchi, clear to auscultation Gastrointestinal: tenderness ( Tenderness is noted in the epigastrium without a palpable mass or rebound.), other ( Hypoactive bowel sounds.) Genitourinary: no bladder fullness Skin: warm Musculoskeletal: full muscle strength Neurologic: AAOx3, CN II-XII Intact ICD10 Worksheet Patient Problems: Problems Problem Status Onset Acute pancreatitis Acute
--- NOTE | 2017-02-19 17:33 | GCON ---
[f rep st] CONSULTATION GASTROENTEROLOGY CONSULTATION DATE OF CONSULTATION: 02/20/2017 REFERRING PHYSICIAN: Huseyin Zamarripa Jr., MD REASON FOR CONSULTATION: Recurrent pancreatitis. HISTORY OF PRESENT ILLNESS: The patient is a very pleasant 26-year-old female with past history significant for chronic pancreatitis, initially diagnosed when she was 20. She had most of her workup done when she was in [place], as well as in [place] at [facility]. She remembers having ERCPs, MRCPs, laparoscopic cholecystectomy, evaluation for autoimmune pancreatitis, evaluation for hypertriglyceridemia, and other etiologies for pancreatitis. All of these were negative. She did have prior extracorporal shockwave lithotripsy to remove pancreatic stones in the head of her pancreas, and reportedly had 3 years of resolution of her symptoms until recently. She was admitted to [facility] earlier this month. She was evaluated down at the [facility] by Les Preston MD, and underwent ERCP, with pancreatoscopy and stent placement. She was held overnight secondary to abdominal discomfort, discharged the next day. She had improvement, but then presented here with worsening symptoms. She has been here since February 17. She says today she is finally maybe starting to turn the corner. Her nausea and pain are improving a little bit, and she is actually feeling somewhat hungry. She says these are typical presentations for episode of pancreatitis, with the exception of the normal lipase, in absence of significant inflammation on imaging scans. She does have her ERCP report with her from the [facility] performed on february 14, 2017. I did make a copy of it, and gave it to Dr. Zamarripa, who will put it in her chart. Because of her ongoing symptoms, I was called to help and evaluate, and treat in that regard. PAST MEDICAL/SURGICAL HISTORY: Chronic pancreatitis, as above. Some reflux issues. Have included procedures for ERCPs, and she had a herniated disc that was operated on. MEDICATIONS: At home included pancrelipase. According to the chart, she had Protonix, but she did not mention that to me. ALLERGIES: No known drug allergies. SOCIAL HISTORY: Does not smoke cigarettes. She does not drink alcohol. FAMILY HISTORY: No evidence of pancreatitis. No history of pancreatitis in her family. Grandmother had breast CA. Dad had gallbladder stones and increased triglycerides. REVIEW OF SYSTEMS: A complete review of systems is performed, and is negative other than noted in HPI. Pertinent negatives include, currently, no chest pain , shortness of breath, palpitations, cough. Nausea and vomiting have improved, abdominal pain has improved. PHYSICAL EXAM: GENERAL: Well-developed, well-nourished, young female sitting in bed comfortably. VITAL SIGNS: Blood pressure 113/68, heart rate 54, respirations 18, 96% on room air, temperature is 36.9. EYES: Anicteric. ANIRUDH. EOMI. MOUTH: No lesions. NECK: Supple. No JVD. No lymphadenopathy. No thyroid mass. BACK: No spine tenderness. No CVA tenderness. LUNGS: Clear to auscultation. CARDIAC: S1, S2. Regular rhythm, mildly bradycardic. No murmurs, rubs or gallops appreciated. ABDOMEN: Bowel sounds are normal in pitch and frequency. ABDOMEN: Soft, with epigastric tenderness. No rebound. No guarding. No hepatosplenomegaly. EXTREMITIES: No cyanosis, clubbing, or edema. NEUROLOGIC: Cranial nerves intact. Nonfocal. SKIN: No stigmata of advanced liver disease. No rashes. LABORATORY DATA: From February 17: WBC 8.64, hemoglobin 12.7, hematocrit 37.8, MCV is a little low at 77.1, RDW of 15.0, platelet count is 310. Sodium 138, potassium 4.1, chloride 104, bicarbonate 24, BUN 11, creatinine 1.0, glucose 101 , calcium 9.6. Bilirubin 0.5, AST 30, ALT 32, alkaline phosphatase 57, total protein 7.0, albumin 4.3, lipase 60. A repeat sugar, glucose was 89. CT scan from February 17, 2017: Interval pancreatic stent placement. Calcifications within accessory duct. Mild pancreatic inflammation compatible with pancreatitis, without pseudocyst or fluid collection. Left lower lobe atelectasis. Mild pelvic ascites. Prior cholecystectomy. Mild focal atrophy and hepatic biliary duct dilatation, medial segment, left hepatic lobe. ASSESSMENT: Idiopathic chronic pancreatitis, status post stent placement, with mild pancreatitis following the stent placement, currently improving, albeit slowly. RECOMMENDATIONS: 1. Add PPI. 2. When patient feels that she can start to take p.o., trial of clears. 3. I will contact Dr. Preston tomorrow to let him know that she is in the hospital , and to see if he has her previous workup to make sure that all of the other etiologies for chronic pancreatitis have been evaluated. 4. Further recommendations to follow results of above and clinical course. Thank you for allowing me to participate in the patient's healthcare. Do not hesitate to call me with any questions. /[id number]/MODL MTDD
[2017-02-19] MEDS: PANTOPRAZOLE SODIUM 40 MG in NS 100 ML IV SCH (21:20)
[2017-02-20 04:58] LABS: % IMMATURE GRANULYOCYTES 0.3 % (0.0-1.1); ABSOLUTE IMMATURE GRANULOCYTES 0.02 10^3/uL (0.00-0.10); ADD DIFF? NO; ADD MORPH? NO; ADD SCAN? NO; ATYPICAL LYMPHOCYTE FLAG 0 (0-99); FRAGMENT RBC FLAG 0 (0-99); HEMATOCRIT 34.7 % (38.0-47.0); LEFT SHIFT FLG 0 (0-99); LIPEMIA HEMOLYSIS FLAG 80 (0-99); MEAN CELL HEMOGLOBIN 24.3 pg (27.9-34.1); MEAN CELL HEMOGLOBIN CONCENTR. 31.7 g/dL (32.4-36.7); MEAN CELL VOLUME 76.8 fL (81.5-99.8); MEAN PLATELET VOLUME 11.2 fL (8.7-11.7); PLATELET CLUMPS FLAG 10 (0-99); PLATELET COUNT 298 10^3/uL (150-400); RED BLOOD CELL COUNT 4.52 10^6/uL (4.18-5.33); RED CELL DISTRIBUTION WIDTH 14.8 % (11.5-15.2)
[2017-02-20 05:02] LABS: ALANINE AMINOTRANSFERASE 38 IU/L (9-52); ALBUMIN 3.9 g/dL (3.5-5.0); ALKALINE PHOSPHATASE 55 IU/L (38-126); ANION GAP 13 mEq/L (8-16); ASPARTATE AMINOTRANSFERASE 30 IU/L (14-46); BILIRUBIN,TOTAL 0.6 mg/dL (0.1-1.4); CALCIUM 9.5 mg/dL (8.5-10.4); CARBON DIOXIDE 17 mEq/l (22-31); CHLORIDE 107 mEq/L (97-110); CHOLESTEROL 222 mg/dL (140-200); CHOLESTEROL/HDL RATIO 4.19 RATIO (1.00-4.44); GLOMERULAR FILTRATION RATE > 60; GLUCOSE 58 mg/dL (70-100); HIGH DENSITY LIPOPROTEIN 53 mg/dL (40-75); LDL/HDL RATIO 2.53 RATIO (1.00-3.22); LOW DENSITY LIPOPROTEIN 134 mg/dL (60-100); NON-HIGH DENSITY LIPOPROTEIN 169 mg/dL (90-129); POTASSIUM 4.4 mEq/L (3.5-5.2); SODIUM 137 mEq/L (134-144); TOTAL PROTEIN 6.7 g/dL (6.3-8.2); TRIGLYCERIDE 179 mg/dL (35-135); VERY LOW DENSITY LIPOPROTEINS 35 mg/dL (8-25)
[2017-02-20 05:11] LABS: % SATURATION 19 % (20-55); TOTAL IRON BINDING CAPACITY 370 ug/dL (260-490)
[2017-02-20] MEDS: PANTOPRAZOLE SODIUM 40 MG in NS 100 ML IV SCH (08:41)
[2017-02-20 08:50] VITALS: TEMP 98.7
--- NOTE | 2017-02-20 15:14 | HOSPPROG ---
Hospitalist Progress Note Assessment/Plan: 26-year-old admitted with acute pancreatitis. She has recently had a stent placed at the [facility] and had the onset of abdominal pain with persistent nausea consistent with her pancreatitis. Today is hospital day 3 -Chronic ideo pancreatitis acute exacerbation related to recent ERCP with stent placement done at [place] Today the patient is improving and attempting clear liquids and will increase her diet as tolerated. She reports her nausea is resolving. GI consultation appreciated. Case discussed the case with Dr. Yannick Stevens -Pain: Has not used the PRINT GRAPHIC DESIGNER in the last 12 hours. Pain now is in good control. -Dispo: When the patient is able to eat she will be able to be discharged to her own care. She has recently moved from [place] to the [facility] and should be referred back to the [facility] for care of her pancreatitis. Today I called the [facility] and left a message with Dr. Stephens at [phone]. I suggested referral back to this physician. Subjective: Reports the nausea is improving and she has less pain has not used the PRINT GRAPHIC DESIGNER in the LEs 12:18 p.m. hours. No fever nausea or vomiting. Objective: Vital Signs Temp Pulse Resp BP Pulse Ox 37.1 C 62 16 119/64 94 02/20/17 08:00 02/20/17 08:00 02/20/17 08:00 02/20/17 08:00 02/20/17 08:00 Laboratory Results 02/20/17 04:15 02/20/17 04:15 02/19/17 02/20/17 02/21/17 05:59 05:59 05:59 Intake Total 1471 0 2395 Balance 1471 0 2395 - Time Spent With Patient Time Spent with Patient: greater than 35 minutes Time Spent with Patient: Greater than 35 minutes spent on this patients care, greater than 50% of time spent counseling, educating, and coordinating care regarding the above mentioned plan. - Pending Discharge Pending Discharge Within 24 Hours: Yes Pending Discharge Date: 02/21/17 Pending Discharge Time: 11:00 - Physical Exam Constitutional: no apparent distress Eyes: PERRL, anicteric sclera Ears, Nose, Mouth, Throat: moist mucous membranes, hearing normal Cardiovascular: regular rate and rhythym, no murmur, rub, or gallop Respiratory: no respiratory distress, no rales or rhonchi, clear to auscultation Gastrointestinal: normoactive bowel sounds, soft, non-tender abdomen, no palpable masses Genitourinary: no bladder fullness Skin: warm Neurologic: AAOx3, CN II-XII Intact ICD10 Worksheet Patient Problems: Problems Problem Status Onset Acute pancreatitis Acute
--- NOTE | 2017-02-20 16:28 | SOAPPROG ---
SOAP Progress Note Assessment/Plan: Assessment:Plan: 1) pancreatitis - slowly advance po intake, pain meds as needed, I called and left vm on cell phone of Dr. Preston at [facility]. Trig and lipids not high enough to cause pancreatitis, may still benefit from lipid lowering meds 2) EPI pain - improving, transition to po meds 3) dispo - maybe home tomorrow, f/u Dr. Preston as scheduled 02/20/17 16:27 Subjective: cc- pancreatitis s/p ERCP with panc stent placed for chronic pancreatitis she is feeling better with less pain, wnats to try a little PO Objective: Vital Signs Temp Pulse Resp BP Pulse Ox 37.1 C 62 16 119/64 94 02/20/17 08:00 02/20/17 08:00 02/20/17 08:00 02/20/17 08:00 02/20/17 08:00 Laboratory Results 02/20/17 04:15 02/20/17 04:15 02/19/17 02/20/17 02/21/17 05:59 05:59 05:59 Intake Total 1471 0 2395 Balance 1471 0 2395 A+Ox3 CTA S1S2, RRR +BS, soft, tender no r/g ICD10 Worksheet Patient Problems: Problems Problem Status Onset Acute pancreatitis Acute
[2017-02-20 16:56] VITALS: BP 111/71; PULSE 46; RESP 18; O2SAT 100
--- NOTE | 2017-02-20 20:37 | GDS ---
[f rep st] DISCHARGE SUMMARY NEW AND ACUTE DIAGNOSES ON THIS ADMISSION: 1. Acute idiopathic pancreatitis. 2. Gastroesophageal reflux disease. CONSULTATION: Gastroenterology. PROCEDURE: Abdominal CT scan. HOSPITAL COURSE: A 26-year-old female with a known history of idiopathic pancreatitis which has bee n evaluated in [place] previously, yet she moved here approximately 2 weeks ago. She was seen at [facility] for an episode of acute pancreatitis where a stent was placed by Dr. Preston. She was discharged i n good condition, but then developed increasing abdominal pain consistent with her pancreatitis. Fernie gu was admitted here and found to have a normal white count and hemoglobin with a lipase of 60. She reported it was not unusual to have acute episodes of acute pancreatitis with a normal lipase. She was noted to have a mildly elevated triglyceride and cholesterol. Discussions with Gastroentero logy indicated that these were not truly at treatment levels for pancreatitis caused by elevated cho lesterol or triglycerides. She was treated with PPI medication, fluids and a INFO PRINT PRESS OPERATOR pump for relief of her pain and she slowly resolved her nausea and pain, and was able to tolerate a regular diet. She herself requested to return home and she reports she will follow up at [facility]. DISCHARGE MEDICATIONS: Protonix 40 mg daily, oxycodone IR 5-10 mg p.o. q.4 hours p.r.n. pain, Zofra n 4 mg p.o. q.4 hours p.r.n. nausea, multivitamins each day, lipase, protease and amylase tablets to be taken 1 capsule three times daily, or 2 capsules daily. She is also on a hormone replacement ta blet. control pills which she takes 1 daily in the evening. PLAN: The patient will return home and follow her usual diet and her usual means of managing this a s she has had this problem frequently. She will continue to take her home medications. Her followu p plan is with [facility] and her followup will be with Dr. Mihai eastman and Dr. Stephens. They can be reached at phone #[phone]. /[id number]/MODL
== END 2017-02-20 18:16 | disposition home or self-care (01) | DRG 440 ==
LOC: F3E 05:55 → OBSVTOIN 02-18 11:11
PROVIDERS: ADMIT Student in an Organized Health Care Education/Training Program; ATTEND Internal Medicine Pulmonary Disease
DX: K85.00 Idiopathic acute pancreatitis without necrosis or infection (principal); K21.9 Gastro-esophageal reflux disease without esophagitis; E78.1 Pure hyperglyceridemia; E78.00 Pure hypercholesterolemia, unspecified
CPT/HCPCS: 96365; G0378; J1170; J2405; Q9967